=== PATIENT | female | born 1945 | race Caucasian/White ===

== ENCOUNTER 2016-11-10 15:58 | Emergency (ER) | payer OTHER, BC ==
[2016-11-10 16:04] VITALS: BP 139/75; PULSE 80; TEMP 98.2; BMI 25.4
--- NOTE | 2016-11-10 17:36 | PDOC ---
History of Present Illness - General Chief Complaint: Bite Stated Complaint: BEE STING ON SUNDAY Time Seen by Provider: 11/10/16 17:19 History Source: Patient Exam Limitations: No Limitations - History of Present Illness Initial Comments: 11/10/16 17:31 This is a 71-year-old woman with past medical history of hypercholesterolemia who presents today with complaints of bee sting to left lateral knee on November 06. She reports that she was in [place] with family and felt a sudden onset sharp pain to left knee where she was able to swat the bee from her knee. The patient is concerned that there is a retained stinger in her knee and wanted to be evaluated. She denies fevers, joint pain, itching, chills. Severity: Yes: mild Location: reports: none Past History - Past Medical History Allergies/Adverse Reactions: Allergies Allergy/AdvReac Type Severity Reaction Status Date / Time Penicillins Allergy Verified 11/10/16 16:04 Home Medications: Ambulatory Orders Simvastatin 10 mg PO HS 11/10/16 Hypercholesterolemia: Yes - Surgical History Appendectomy: Yes - Psycho/Social/Smoking Cessation Hx Suicidal Ideation: No Smoking History: Never smoked Information on smoking cessation initiated: No Hx Alcohol Use: Yes (occasional) Drug/Substance Use Hx: No Substance Use Type: None Review of Systems - Review of Systems Able to Perform ROS?: Yes Is the patient limited Mexican proficient: No Constitutional: No: Symptoms Reported HEENTM: No: Symptoms Reported Respiratory: No: Symptoms reported Cardiac (ROS): No: Symptoms Reported ABD/GI: No: Symptoms Reported : No: Symptoms Reported Musculoskeletal: No: Symptoms Reported Integumentary: Yes: See HPI Neurological: No: Symptoms reported Endocrine: No: Symptoms Reported Hematologic/Lymphatic: No: Symptoms Reported *Physical Exam - Vital Signs Last Vital Signs Temp Pulse Resp BP Pulse Ox 98.2 F 80 17 139/75 97 11/10/16 16:02 11/10/16 16:02 11/10/16 16:02 11/10/16 16:02 11/10/16 16:02 - Physical Exam General Appearance: Yes: Appropriately Dressed. No: Apparent Distress HEENT: positive: EOMI, AIYANA Neck: positive: Trachea midline, Supple Respiratory/Chest: positive: Lungs Clear, Normal Breath Sounds. negative: Respiratory Distress, Accessory Muscle Use, Stridor Cardiovascular: negative: Regular Rhythm, Regular Rate, S1, S2 Gastrointestinal/Abdominal: positive: Normal Bowel Sounds, Soft. negative: Tender, Organomegaly Musculoskeletal: positive: Normal Inspection. negative: CVA Tenderness Extremity: positive: Normal Capillary Refill, Normal Inspection, Normal Range of Motion Integumentary: positive: Normal Color, Dry, Warm Neurologic: positive: carpenters II-XII NML intact, Fully Oriented, Alert, Normal Mood/ Affect, Normal Response, Motor Strength 07/07 Medical Decision Making - Medical Decision Making 11/10/16 17:33 A: This is a 71-year-old woman with past medical history of hypercholesterolemia who presents today with complaints of bee sting to left lateral knee on November 06. She reports that she was in [place] with family and felt a sudden onset sharp pain to left knee where she was able to swat the bee from her knee. The patient is concerned that there is a retained stinger in her knee and wanted to be evaluated. She denies fevers, joint pain, itching, chills. No erythema to site. Direct visualization under magnification revealed no retained stinger. No change in sensation. patient able to fully articulate left knee against resistance. P: hydrocortisone cream for itching prn discharge *DC/Admit/Observation/Transfer Diagnosis at time of Disposition: Sting, bee Qualifiers: Encounter type: initial encounter Injury intent: accidental or unintentional Qualified Code(s): T63.441A - Toxic effect of venom of bees, accidental ( unintentional), initial encounter - Discharge Dispostion Disposition: HOME Condition at time of disposition: Stable Admit: No - Referrals Referrals: Farrukh Moreno MD [Primary Care Provider] - - Patient Instructions Printed Discharge Instructions: DI for Insect Bites and Stings Additional Instructions: Apply hydrocortisone cream as directed by manufacturers instructions. Return to emergency department for any fevers, increased pain, itching, or any other concerns. thank you very much for choosing us to provide urine or healthcare needs.
== END 2016-11-10 17:42 | disposition home or self-care (01) ==
LOC: JERFT 15:58
DX: T63.441A Toxic effect of venom of bees, accidental (unintentional), initial encounter (principal); Y92.89 Other specified places as the place of occurrence of the external cause; E78.00 Pure hypercholesterolemia, unspecified
CPT/HCPCS: 99281-25

== ENCOUNTER 2021-02-17 14:41 | Emergency (ER) | payer OTHER, BC ==
[2021-02-17 15:12] VITALS: TEMP 98.9; BMI 25.8
[2021-02-17] MEDS ORDERED: ACETAMINOPHEN 1000 MG/100 ML VIAL IVPB ONE (16:38)
[2021-02-17] MEDS ORDERED: ACETAMINOPHEN INJECTION 100 ML IVPB ONE (16:58)
[2021-02-17 17:17] LABS: PH,URINE 5.5 (5.0-8.0); URINE APPEARANCE CLEAR; URINE BILIRUBIN NEGATIVE (NEGATIVE); URINE COLOR DK YELLOW; URINE GLUCOSE (UA) NEGATIVE (NEGATIVE); URINE KETONE 1+ (NEGATIVE); URINE LEUK ESTERASE NEGATIVE (NEGATIVE); URINE NITRITE NEGATIVE (NEGATIVE); URINE PROTEIN TRACE (NEGATIVE)
[2021-02-17 17:19] LABS: BASO % 1.7 % (0-2.0); EOS % 1.2 % (0-4.5); HEMATOCRIT 33.4 % (32.4-45.2); HEMOGLOBIN 11.4 GM/dL (10.7-15.3); LYMPH % 21.9 % (8-40); MCH 29.2 pg (25.7-33.7); MCHC 34.1 g/dl (32.0-36.0); MEAN CELL VOLUME 85.6 fl (80-96); MEAN PLT VOLUME 7.7 fl (7.5-11.1); MONO % 7.4 % (3.8-10.2); NEUT % 67.8 % (42.8-82.8); PLATELET COUNT 360 10^3/uL (134-434); WHITE BLOOD COUNT 11.9 K/mm3 (4.0-10.0)
[2021-02-17] MEDS ORDERED: SODIUM CHLORIDE 0.9% 500 ML INFUS.BAG IV ONE (17:33)
[2021-02-17 17:42] LABS: ALBUMIN 2.9 g/dl (3.4-5.0); BLOOD UREA NITROGEN 14.6 mg/dL (7-18); CALCIUM 8.7 mg/dL (8.5-10.1); MAGNESIUM 2.7 mg/dL (1.8-2.4)
[2021-02-17 17:45] LABS: CREATININE 0.7 mg/dL (0.55-1.3)
[2021-02-17 17:47] LABS: BILIRUBIN,TOTAL 0.3 mg/dL (0.2-1)
[2021-02-17 19:39] VITALS: BP 120/68; PULSE 80
== END 2021-02-17 19:20 | disposition home or self-care (01) ==
LOC: JER 14:41
PROC: 3E033GC Introduction of Other Therapeutic Substance into Peripheral Vein, Percutaneous Approach (ICD-10-PCS; principal; 2021-02-17)
DX: T36.8X5A Adverse effect of other systemic antibiotics, initial encounter (principal)
CPT/HCPCS: 36415; 80053; 81003; 83735; 85025; 87086; 87186; 99284-25; J0131